=== PATIENT | male | born 1990 | race Caucasian/White ===

== ENCOUNTER 2017-05-09 21:46 | Emergency (ER) | payer OTHER ==
--- NOTE | 2017-05-09 23:20 | EDPHY ---
H & P Stated Complaint: LEFT LOWER JAW AND DENTAL PAIN X 1 WEEK HPI/ROS: HPI CHIEF COMPLAINT: Dental pain HISTORY OF PRESENT ILLNESS: Patient very pleasant 18-year-old male otherwise healthy no significant medical history does not take any daily medications he presents emergency room with 24 hours of lower jaw line posterior dental pain. Patient states he has decaying teeth back there and had a root canal in the past. The pain started hurting in 24 hours ago sharp stabbing pain. No fever. No trouble swallowing. Pain became worse tonight. Past Medical History: Denies significant medical history Past Surgical History: Denies significant surgical history Social History: Denies daily use of drugs alcohol tobacco. Family History: Noncontributory ROS REVIEW OF SYSTEMS: A comprehensive 10 point review of systems is otherwise negative aside from elements mentioned in the history of present illness. Exam Constitutional triage nursing summary reviewed, vital signs reviewed, awake/ alert. Eyes normal conjunctivae and sclera, EOMI, PERRLA. HENT oropharynx: Tooth number 18 shows decay. No gumline abscess. No Luis' s. Tender palpation over tooth 18. normal inspection, atraumatic, moist mucus membranes, no epistaxis, neck supple/ no meningismus, no raccoon eyes. Respiratory clear to auscultation bilaterally, normal breath sounds, no respiratory distress, no wheezing. Cardiovascular rate normal, regular rhythm, no murmur, no edema, distal pulses normal. Gastrointestinal soft, non-tender, no rebound, no guarding, normal bowel sounds, no distension, no pulsatile mass. Genitourinary no CVA tenderness. Musculoskeletal no midline vertebral tenderness, full range of motion, no calf swelling, no tenderness of extremities, no meningismus, good pulses, neurovascularly intact. Skin pink, warm, & dry, no rash, skin atraumatic. Neurologic awake, alert and oriented x 3, AAOx3, moves all 4 extremities equally, motor intact, sensory intact, CN II-XII intact, normal cerebellar, normal vision, normal speech. Psychiatric normal mood/affect. Heme/Lymph/Immune no lymphadenopathy. Differential Diagnosis: Includes but is not limited to in a particular order dental decay, dental caries, pulpitis, nerve root infection Medical Decision Making: Plan for this patient [place] pain medicine here in emergency room. As well as Pen-VK. And take-home packs for both. Dental 8 follow-up. Return if worsening pain swelling fever questions or concerns he understands. Source: Patient - Personal History Current Tetanus/Diphtheria Vaccine: Yes Current Tetanus Diphtheria and Acellular Pertussis (TDAP): Yes - Medical/Surgical History Hx Asthma: No Hx Chronic Respiratory Disease: No Hx Diabetes: No Hx Cardiac Disease: No Hx Renal Disease: No Hx Cirrhosis: No Hx Alcoholism: No Hx HIV/AIDS: No Hx Splenectomy or Spleen Trauma: No Other PMH: ADHD. DEPRESSION - Social History Smoking Status: Heavy smoker Constitutional: Initial Vital Signs Temperature (C) 36.8 C 05/09/17 21:50 Heart Rate 62 05/09/17 21:50 Respiratory Rate 18 05/09/17 21:50 Blood Pressure 123/85 H 05/09/17 21:50 O2 Sat (%) 97 05/09/17 21:50 O2 Delivery Mode Room Air Allergies/Adverse Reactions: No Known Allergies Allergy (Unverified 05/09/17 21:52) Home Medications: Medication Instructions Recorded Penicillin V Potassium [Penicillin 500 mg PO BID #14 tab 05/09/17 VK] Departure - Departure Disposition: Home, Routine, Self-Care Clinical Impression: Pain, dental Condition: Good Instructions: Toothache (ED), Dental Caries (ED) Additional Instructions: 1. Please follow up with dentistry. 2. Return emergency review of worsening symptoms questions or concerns. 3. Please call dental AID and make a follow-up appointment. Referrals: Chandrika Ceballos PA [Primary Care Provider] - As per Instructions [facility] [Outside] - As per Instructions [facility] [Outside] - As per Instructions Dental [facility] [Outside] - As per Instructions [facility] [Outside] - As per Instructions Prescriptions: Penicillin V Potassium [Penicillin VK] 500 mg PO BID #14 tab
[2017-05-09] MEDS ORDERED: PENICILLIN VK 250MG PREPACK#6 BTL TAKEHOME ONE (23:26)
[2017-05-09] MEDS ORDERED: HYDROCOD/APAP 5/325 PREPACK#6 BTL TAKEHOME ONE (23:26)
[2017-05-09] MEDS ORDERED: HYDROCODONE/APAP 5/325 TAB PO ONE (23:26)
[2017-05-09] MEDS ORDERED: PENICILLIN VK 500 MG TAB PO ONE (23:26)
[2017-05-09 23:54] VITALS: BP 129/87; PULSE 60; RESP 16; TEMP 97.7; O2SAT 94
== END 2017-05-09 23:55 | disposition home or self-care (01) ==
DX: K08.89 Other specified disorders of teeth and supporting structures (principal); F17.200 Nicotine dependence, unspecified, uncomplicated